=== PATIENT | male | born 1990 | race Two or more races ===

== ENCOUNTER 2018-04-23 14:31 | Emergency (ER) | payer MEDICAID ==
[~2018-04-23] VITALS: Ht 175.3 cm; Wt 104.3 kg
[2018-04-23 14:38] VITALS: BP 141/77
== END 2018-04-23 18:53 | disposition home or self-care (01) ==
LOC: ER 14:31
DX: S20.212A Contusion of left front wall of thorax, initial encounter (principal); W01.0XXA Fall on same level from slipping, tripping and stumbling without subsequent striking against object, initial encounter; Y93.89 Activity, other specified; Y99.8 Other external cause status; Y92.89 Other specified places as the place of occurrence of the external cause
CPT/HCPCS: 71101

== ENCOUNTER 2019-02-03 12:21 | Emergency (ER) | payer MEDICAID ==
[~2019-02-03] VITALS: Ht 175.3 cm; Wt 108.9 kg
[2019-02-03 12:32] VITALS: BP 141/79
== END 2019-02-03 13:12 | disposition home or self-care (01) ==
LOC: ER 12:21
DX: J45.901 Unspecified asthma with (acute) exacerbation (principal); J06.9 Acute upper respiratory infection, unspecified; R21 Rash and other nonspecific skin eruption
CPT/HCPCS: 71046

== ENCOUNTER 2020-02-09 13:51 | Emergency (ER) | payer MEDICAID ==
[~2020-02-09] VITALS: Ht 177.8 cm; Wt 111.1 kg
[2020-02-09 16:17] VITALS: BP 139/92
[2020-02-09] MEDS ORDERED: cefTRIAXone SOD 1,000 MG VL IM ONE (16:45)
== END 2020-02-09 17:57 | disposition home or self-care (01) ==
LOC: ER 13:51
DX: L60.0 Ingrowing nail (principal); E78.5 Hyperlipidemia, unspecified
CPT/HCPCS: 96372; 99283; J0696